=== PATIENT | male | born 1980 | race Two or more races ===

== ENCOUNTER 2021-08-10 18:00 | Emergency (ER) | payer OTHER ==
[~2021-08-10] VITALS: Ht 177.8 cm; Wt 113.4 kg
[2021-08-10] MEDS ORDERED: LISINOPRIL10 MG PO (21:20)
== END 2021-08-10 21:44 | disposition home or self-care (01) ==
LOC: ER 18:00
DX: R07.89 Other chest pain (principal)

== ENCOUNTER 2021-09-18 16:16 | Outpatient (CLI) | payer OTHER ==
[~2021-09-18 16:16] MED LIST: LISINOPRIL10 MG PO
== END 2021-09-18 23:00 | disposition home or self-care (01) ==
LOC: LAB 16:16
PROVIDERS: ATTEND Urology
DX: R31.21 Asymptomatic microscopic hematuria (principal)

== ENCOUNTER 2021-09-19 13:25 | Outpatient (CLI) | payer OTHER | END 2021-09-19 13:26 | disposition home or self-care (01) | LOC: SONOGRAMA 13:25 | PROVIDERS: ATTEND Urology | DX: R31.21 Asymptomatic microscopic hematuria (principal) ==

== ENCOUNTER 2021-10-11 09:31 | Outpatient (CLI) | payer OTHER | END 2021-10-11 13:00 | disposition home or self-care (01) | LOC: LAB 09:31 | PROVIDERS: ATTEND General Practice | DX: D64.9 Anemia, unspecified (principal); I10 Essential (primary) hypertension; E11.69 Type 2 diabetes mellitus with other specified complication ==

== ENCOUNTER 2021-10-11 10:16 | Outpatient (CLI) | payer OTHER | END 2021-10-11 10:25 | disposition home or self-care (01) | LOC: RAD 10:16 | PROVIDERS: ATTEND General Practice | DX: R06.02 Shortness of breath (principal); J45.998 Other asthma ==

== ENCOUNTER 2022-05-07 08:22 | Emergency (ER) | payer OTHER ==
[~2022-05-07] VITALS: Ht 177.8 cm; Wt 108.0 kg
== END 2022-05-07 15:41 | disposition home or self-care (01) ==
LOC: ER 08:22
DX: R05.3 Chronic cough (principal); M79.604 Pain in right leg; I10 Essential (primary) hypertension

== ENCOUNTER → 2022-10-26 15:19 | Outpatient (CLI) | payer OTHER | END | disposition home or self-care (01) | LOC: LAB 15:19 | PROVIDERS: ATTEND General Practice | DX: J20.8 Acute bronchitis due to other specified organisms (principal); J11.00 Influenza due to unidentified influenza virus with unspecified type of pneumonia; Z20.828 Contact with and (suspected) exposure to other viral communicable diseases ==

== ENCOUNTER 2022-12-06 08:52 | Outpatient (CLI) | payer OTHER | END 2022-12-06 08:55 | disposition home or self-care (01) | LOC: LAB 08:52 | PROVIDERS: ATTEND General Practice | DX: E21.3 Hyperparathyroidism, unspecified (principal); I10 Essential (primary) hypertension; E78.5 Hyperlipidemia, unspecified; N39.0 Urinary tract infection, site not specified; E55.9 Vitamin D deficiency, unspecified; E11.65 Type 2 diabetes mellitus with hyperglycemia; I11.9 Hypertensive heart disease without heart failure; E03.9 Hypothyroidism, unspecified ==

== ENCOUNTER → 2023-09-09 08:40 | Outpatient (CLI) | payer OTHER ==
[2023-09-09 09:26] LABS: HEMATOCRIT 39.9 % (39.0-48.0); HEMOGLOBIN 13.5 g/dL (13-16.00); MEAN CELL VOLUME 87.7 fL (80.0-100.00); MEAN CORPUSCULAR HEMOGLOBIN 29.7 pg (27.00-32.0); MEAN CORPUSCULAR HGB CONC 33.8 g/dl (32.0-36.0); PLATELET COUNT 420 K/uL (150-450); RED BLOOD COUNT 4.55 M/uL (4.00-6.00); RED CELL DISTRIBUTION WIDTH 13.1 % (11.5-14.5)
[2023-09-09 10:00] LABS: ALBUMIN 4.1 gm/dL (3.4-5.0); BILIRUBIN TOTAL 0.48 mg/dL (0.3-1.2); CALCIUM 9.5 mg/dL (8.5-10.1); CHOL HDL RATIO 3.5 (0-5.0); CREATININE SERUM 0.91 mg/dL (0.70-1.30); GFR 90.51; GLOBULINA 3.4 G/DL (2.4-3.5); POTASSIUM 4.56 mEq/L (3.5-5.1); PROSTATIC SPECIFIC ANTIGEN 0.489 NG/ML (0.010-4.00); T4 TOTAL 7.08 UG/DL (4.5-12.1); TOTAL PROTEIN 7.5 gm/dL (6.4-8.2); TSH 1.35 uIU/mL (0.358-3.74)
[2023-09-09 10:49] LABS: PH,URINE 5.5 (5.0-8.0); URINE APPEARANCE Clear; URINE BILIRRUBIN Negative (NEGATIVE); URINE BLOOD Negative; URINE COLOR Yellow; URINE GLUCOSE Negative (NEGATIVE); URINE LEUKOCYTE Negative; URINE NITRATE Negative; URINE PROTEIN Negative (NEGATIVE); URINE UROBILINOGEN 0.2 E.U./dl
[2023-09-09 10:50] LABS: URINE BACTERIA 3.7 uL (0.0-1933); URINE EPITHELIAL CELLS 0.9 uL (0.0-38.8); URINE RBC 11.2 uL (0.0-20.8); URINE WBC 2.4 uL (0.0-23.2)
[2023-09-09 11:23] LABS: T3 TOTAL 1.31 ng/ml (0.846-2.02); VITAMIN D3 25 HYDROXY 33.08 ng/ml (30-120)
== END | disposition home or self-care (01) ==
LOC: LAB 08:40
PROVIDERS: ATTEND General Practice
DX: I11.9 Hypertensive heart disease without heart failure (principal); E78.5 Hyperlipidemia, unspecified; E11.65 Type 2 diabetes mellitus with hyperglycemia; R19.5 Other fecal abnormalities; E55.9 Vitamin D deficiency, unspecified; N39.0 Urinary tract infection, site not specified; N40.0 Benign prostatic hyperplasia without lower urinary tract symptoms; E03.9 Hypothyroidism, unspecified

== ENCOUNTER 2024-04-08 07:34 | Outpatient (CLI) | payer OTHER ==
[2024-04-08 08:00] LABS: PH,URINE 5.5 (5.0-8.0); URINE BILIRRUBIN Negative (NEGATIVE); URINE BLOOD Trace; URINE COLOR Yellow; URINE GLUCOSE Negative (NEGATIVE); URINE KETONE Negative (NEGATIVE); URINE LEUKOCYTE Negative; URINE NITRATE Negative; URINE PROTEIN Negative (NEGATIVE); URINE UROBILINOGEN 0.2 E.U./dl
[2024-04-08 08:01] LABS: URINE BACTERIA 7.5 uL (0.0-1933); URINE RBC 18.1 uL (0.0-20.8)
[2024-04-08 08:12] LABS: URINE APPEARANCE CLEAR; URINE CAST 0.15 uL (0.0-1.40); URINE EPITHELIAL CELLS 0.9 uL (0.0-38.8)
[2024-04-08 08:22] LABS: HEMATOCRIT 39.7 % (39.0-48.0); HEMOGLOBIN 13.5 g/dL (13-16.00); MEAN CELL VOLUME 86.2 fL (80.0-100.00); MEAN CORPUSCULAR HEMOGLOBIN 29.4 pg (27.00-32.0); MEAN CORPUSCULAR HGB CONC 34.1 g/dl (32.0-36.0); PLATELET COUNT 425 K/uL (150-450); RED CELL DISTRIBUTION WIDTH 13.1 % (11.5-14.5)
[2024-04-08 09:05] LABS: BILIRUBIN TOTAL 0.55 mg/dL (0.3-1.2); CALCIUM 9.4 mg/dL (8.5-10.1); CHOL HDL RATIO 4.6 (0-5.0); CREATININE SERUM 0.9 mg/dL (0.70-1.30); GFR 91.25; GLOBULINA 3.4 G/DL (2.4-3.5); POTASSIUM 4.63 mEq/L (3.5-5.1); T4 TOTAL 6.55 UG/DL (4.5-12.1); TOTAL PROTEIN 7.4 gm/dL (6.4-8.2); TSH 1.34 uIU/mL (0.358-3.74)
[2024-04-08 10:48] LABS: T3 TOTAL 1.29 ng/ml (0.846-2.02); VITAMIN D3 25 HYDROXY 29.76 ng/ml (30-120)
== END 2024-04-08 07:40 | disposition home or self-care (01) ==
LOC: LAB 07:34
PROVIDERS: ATTEND General Practice
DX: E21.3 Hyperparathyroidism, unspecified (principal); I10 Essential (primary) hypertension; E78.5 Hyperlipidemia, unspecified; R80.8 Other proteinuria; N39.0 Urinary tract infection, site not specified; E03.9 Hypothyroidism, unspecified; E55.9 Vitamin D deficiency, unspecified; E11.65 Type 2 diabetes mellitus with hyperglycemia; I11.9 Hypertensive heart disease without heart failure

== ENCOUNTER 2024-11-10 14:25 | Outpatient (CLI) | payer OTHER | END 2024-11-10 14:47 | disposition home or self-care (01) | LOC: TOM 14:25 | PROVIDERS: ATTEND General Practice | DX: R10.0 Acute abdomen (principal); N23 Unspecified renal colic ==

== ENCOUNTER 2024-11-12 10:58 | Outpatient (CLI) | payer OTHER ==
[2024-11-12 11:58] LABS: HEMATOCRIT 40.4 % (39.0-48.0); HEMOGLOBIN 13.4 g/dL (13-16.00); MEAN CELL VOLUME 87.2 fL (80.0-100.00); MEAN CORPUSCULAR HGB CONC 33.3 g/dl (32.0-36.0); PLATELET COUNT 403 K/uL (150-450); RED BLOOD COUNT 4.63 M/uL (4.00-6.00)
[2024-11-12 12:27] LABS: URINE APPEARANCE Clear; URINE BILIRRUBIN Negative (NEGATIVE); URINE BLOOD Trace; URINE COLOR Yellow; URINE GLUCOSE Negative (NEGATIVE); URINE KETONE Negative (NEGATIVE); URINE LEUKOCYTE Negative; URINE NITRATE Negative; URINE PROTEIN Negative (NEGATIVE); URINE UROBILINOGEN 0.2 E.U./dl
[2024-11-12 12:30] LABS: URINE BACTERIA 18.3 uL (0.0-1933); URINE RBC 2.6 uL (0.0-20.8)
[2024-11-12 12:59] LABS: URINE CAST 0.58 uL (0.0-1.40); URINE EPITHELIAL CELLS 1.1 uL (0.0-38.8); URINE WBC 1.7 uL (0.0-23.2)
[2024-11-12 13:07] LABS: ALBUMIN 4.1 gm/dL (3.4-5.0); BILIRUBIN TOTAL 0.54 mg/dL (0.3-1.2); CALCIUM 9.2 mg/dL (8.5-10.1); CHOL HDL RATIO 4.5 (0-5.0); CREATININE SERUM 0.87 mg/dL (0.70-1.30); GFR 94.47; GLOBULINA 3.4 G/DL (2.4-3.5); POTASSIUM 4.61 mEq/L (3.5-5.1); PROSTATIC SPECIFIC ANTIGEN 1.44 NG/ML (0.010-4.00); T4 TOTAL 6.94 UG/DL (4.5-12.1); TOTAL PROTEIN 7.5 gm/dL (6.4-8.2); TSH 1.23 uIU/mL (0.358-3.74)
[2024-11-12 13:54] LABS: T3 TOTAL 1.14 ng/ml (0.846-2.02); VITAMIN D3 25 HYDROXY 26.3 ng/ml (30-120)
== END 2024-11-12 11:06 | disposition home or self-care (01) ==
LOC: LAB 10:58
PROVIDERS: ATTEND General Practice
DX: E21.3 Hyperparathyroidism, unspecified (principal); I10 Essential (primary) hypertension; E78.5 Hyperlipidemia, unspecified; R80.8 Other proteinuria; N39.0 Urinary tract infection, site not specified; E03.9 Hypothyroidism, unspecified; E55.9 Vitamin D deficiency, unspecified; E11.65 Type 2 diabetes mellitus with hyperglycemia; I11.9 Hypertensive heart disease without heart failure; R19.5 Other fecal abnormalities; N40.0 Benign prostatic hyperplasia without lower urinary tract symptoms; C61 Malignant neoplasm of prostate

== ENCOUNTER 2025-01-27 17:16 | Emergency (ER) | payer OTHER ==
[~2025-01-27] VITALS: Ht 177.8 cm; Wt 113.4 kg
[2025-01-27] MEDS ORDERED: METHYLPREDNISOLONE SOD SUCC 125 MG VIAL IV STA (17:28)
[2025-01-27] MEDS ORDERED: DIPHENHYDRAMINE HCL 50 MG/ML VIAL 1ML IV STA (17:28)
[2025-01-27] MEDS ORDERED: DIPHENHYDRAMINE HCL 50 MG/ML VIAL 1ML ONE (17:32)
[2025-01-27] MEDS ORDERED: METHYLPREDNISOLONE SOD SUCC 125 MG VIAL ONE (17:33)
== END 2025-01-27 18:03 | disposition home or self-care (01) ==
LOC: ER 17:28
DX: T78.49XA Other allergy, initial encounter (principal); Z91.013 Allergy to seafood; X58.XXXA Exposure to other specified factors, initial encounter